=== PATIENT | female | born 1970 ===

== ENCOUNTER 2018-10-17 17:42 | Emergency (ER) | payer OTHER ==
[2018-10-17 17:59] VITALS: PULSE 83; RESP 20
--- NOTE | 2018-10-17 19:39 | C.PDOC ---
History Of Present Illness 47 y/o female presents to the ED complaining of 3 days of fever, headache, bodyaches, cough, and post-nasal drip. She reports taking Tylenol and Motrin without any relief. She denies any vomiting, diarrhea, abdominal pain, change in urination, or recent travel. Patient also reports having pain in her chest when she coughs. Denies any SOB or pleuritic pain. Time Seen by Provider: 10/17/18 18:31 Chief Complaint (Nursing): Flu-like Symptoms History Per: Patient History/Exam Limitations: no limitations Onset/Duration Of Symptoms: Days (x3) Current Symptoms Are (Timing): Still Present Location Of Pain: Diffuse Myalgias, Headache Associated Symptoms: Fever, Cough, Sinus Drainage Past Medical History Reviewed: Historical Data, Nursing Documentation, Vital Signs Vital Signs: Last Vital Signs Temp 99.4 F 10/17/18 17:57 Pulse 83 10/17/18 17:57 Resp 20 10/17/18 17:57 BP 124/79 10/17/18 17:57 Pulse Ox 97 10/17/18 17:57 Other Surgeries: Hysterectomy Family History: States: Unknown Family Hx - Social History Hx Tobacco Use: No Hx Alcohol Use: No Hx Substance Use: No - Immunization History Hx Tetanus Toxoid Vaccination: No Hx Influenza Vaccination: No Hx Pneumococcal Vaccination: No Review Of Systems Constitutional: Positive for: Fever, Other (Body aches) Eyes: Negative for: Redness, Other (scleral icterus) ENT: Positive for: Nose Discharge (Post-nasal drip) Cardiovascular: Positive for: Chest Pain (when coughing) Respiratory: Positive for: Cough. Negative for: Shortness of Breath Gastrointestinal: Negative for: Nausea, Vomiting, Abdominal Pain, Diarrhea Genitourinary: Negative for: Dysuria, Hematuria Musculoskeletal: Negative for: Back Pain Skin: Negative for: Rash Neurological: Positive for: Headache. Negative for: Weakness, Dizziness Physical Exam - Physical Exam Appears: Non-toxic, No Acute Distress Skin: Normal Color, Warm, No Rash Head: Atraumatic, Normacephalic, Other (No pain on palpation of sinuses) Eye(s): bilateral: Normal Inspection (no scleral icterus), PERRL, EOMI Nose: Discharge (Clear mucous in nares) Oral Mucosa: Moist Throat: Normal (Pharynx is clear), No Erythema, No Exudate Neck: Normal ROM, Supple, Other (No rigidity) Chest: Symmetrical Cardiovascular: Rhythm Regular, No Friction Rub Respiratory: No Rales, No Rhonchi, No Stridor, Other (Lungs clear, moving air well) Gastrointestinal/Abdominal: Soft, No Tenderness, No Distention Extremity: Bilateral: Atraumatic, Normal Color And Temperature Pulses: Left Dorsalis Pedis: Normal, Right Dorsalis Pedis: Normal Neurological/Psych: Oriented x3, Normal Cranial Nerves Gait: Steady ED Course And Treatment O2 Sat by Pulse Oximetry: 97 (RA) Pulse Ox Interpretation: Normal - Radiology CXR: Interpreted by Me, Viewed By Me CXR Interpretation: Yes: No Acute Disease. No: Infiltrates, Pnemothorax Medical Decision Making Medical Decision Making: Impression: Flu-like symptoms, chest pain with coughing Plan: Flu swab sent. Progress/Updates: Flu negative. Counseled patient regarding likely dx of viral illness. Awaiting CXR to rule out acute disease. CXR shows no acute findings. Patient is stable for discharge home. Provided Rx for Zyrtec and advised to follow up with PMD. Disposition Counseled Patient/Family Regarding: Studies Performed, Diagnosis, Need For Followup, Rx Given - Disposition Disposition: HOME/ ROUTINE Disposition Time: 20:08 Condition: STABLE Prescriptions: Cetirizine HCl/Pseudoephedrine [Zyrtec-D Tablet] 1 each PO DAILY #14 [id number] Instructions: Viral Syndrome (DC) Forms: [facility] (Monegasque), Work Excuse - Clinical Impression Clinical Impression: Influenza-like illness - PA / [employer] / Resident Statement MD/DO has reviewed & agrees with the documentation as recorded. - Scribe Statement The provider has reviewed the documentation as recorded by the Abelinoibken Peres All medical record entries made by the Abelinoibken were at my direction and personally dictated by me. I have reviewed the chart and agree that the record accurately reflects my personal performance of the history, physical exam, medical decision making, and the department course for this patient. I have also personally directed, reviewed, and agree with the discharge instructions and disposition.
[2018-10-17 20:36] VITALS: BP 127/83; TEMP 98.6; O2SAT 95
--- NOTE | 2018-10-18 11:23 | RAD ---
Chest x-ray two views HISTORY: Pneumonia. Comparison: None available. Findings: No focal infiltrate or effusion. Heart size within normal limits. Impression: No focal infiltrate or effusion.
== END 2018-10-17 20:36 | disposition home or self-care (01) ==
LOC: C.ER 17:42
DX: J11.1 Influenza due to unidentified influenza virus with other respiratory manifestations (principal)